=== PATIENT | female | born 1965 | race African-American/Black ===

== ENCOUNTER 2016-06-28 07:00 | Day surgery (SDC) | payer BC ==
[2016-06-25 11:23] LABS: APPEARANCE,URINE CLEAR; BILIRUBIN,URINE NEGATIVE (NEGATIVE); GLUCOSE, URINE NEGATIVE (NEGATIVE); KETONES,URINE NEGATIVE (NEGATIVE); LEUKOCYTE ESTERASE,URINE NEGATIVE (NEGATIVE); NITRITE,URINE NEGATIVE (NEGATIVE); PROTEIN,URINE NEGATIVE (NEGATIVE); URINE SPECIFIC GRAVITY 1.011; UROBILINOGEN,URINE NEGATIVE mg/dL (<2.0)
[2016-06-25 11:38] LABS: HEMOGLOBIN 12.5 g/dL (12.0-15.5); HGB HCT DIFFERENCE -2.5; MEAN CORPUSCULAR HEMOGLOBIN 25.2 pg (27.0-33.4); MEAN CORPUSCULAR HGB CONC 31.2 g/dL (32.0-36.0); MEAN CORPUSCULAR VOLUME 81 fl (80-97); RED BLOOD COUNT 4.94 10^6/uL (3.72-5.28); RED CELL DISTRIBUTION WIDTH 16.9 % (11.5-14.0); WHITE BLOOD COUNT 6.8 10^3/uL (4.0-10.5)
--- NOTE | 2016-06-25 16:27 | EKG REPORT ---
SEVERITY:- NORMAL ECG - SINUS RHYTHM : Confirmed by: Leo Higgins MD 25-Jun-2016 16:26:24
[~2016-06-28 07:00] MED LIST: LIDOCAINE 0.5% INJ-PF (5 MG/ML) 50 ML SDV INJ PRN; LIDOCAINE 1%/EPINEPHRINE INJ 20 ML VIAL ONE; RINGERS SOLUTION,LACTATED 1,000 ML IV PRN
[2016-06-28] MEDS ORDERED: MIDAZOLAM 2 MG/2 ML INJ ONE (09:25)
[2016-06-28] MEDS ORDERED: FENTANYL CITRATE INJ/PF 100 MCG/2 ML AMPUL ONE (09:25)
[2016-06-28] MEDS ORDERED: DEXMEDETOMIDINE INJ 80 MCG/20 ML VIAL IV ONE (09:26)
[2016-06-28] MEDS ORDERED: PROPOFOL INJ 200 MG/20 ML VIAL IV ONE ×2 (09:26→11:45)
[2016-06-28] MEDS ORDERED: ACETAMINOPHEN 100 ML IV ONE (09:29)
[2016-06-28] MEDS ORDERED: ONDANSETRON HCL INJ/PF 4 MG/2 ML SDV ONE (09:30)
[2016-06-28] MEDS ORDERED: MORPHINE SULFATE 10 MG/ML INJ IV PRN (11:40)
[2016-06-28] MEDS ORDERED: DIPHENHYDRAMINE HCL 50 MG/ML VIAL IV PRN (11:40)
[2016-06-28] MEDS ORDERED: PROMETHAZINE HCL INJ 25 MG/1 ML VIAL IV PRN ×2 (11:40)
[2016-06-28] MEDS ORDERED: MEPERIDINE HCL/PF INJ 25 MG/1 ML DISP.SYRIN IV PRN (11:40)
[2016-06-28] MEDS ORDERED: FENTANYL CITRATE INJ/PF 100 MCG/2 ML AMPUL IV PRN ×3 (11:40)
[2016-06-28] MEDS ORDERED: KETOROLAC TROMETHAMINE INJ/PF 30 MG/1 ML SDV ONE (12:14)
[2016-06-28] MEDS ORDERED: HYDROMORPHONE HCL INJ/PF 2 MG/ML AMPULE IV PRN (12:29)
[2016-06-28] MEDS ORDERED: RINGERS SOLUTION,LACTATED 1,000 ML IV PRN (12:29)
[2016-06-28] MEDS ORDERED: IBUPROFEN 800 MG TABLET PO PRN (12:29)
[2016-06-28] MEDS ORDERED: OXYCODONE-ACETAMINOPHEN 5-325 MG TABLET PO PRN ×2 (12:30)
[2016-06-28] MEDS ORDERED: HYDROMORPHONE HCL INJ/PF 2 MG/ML AMPULE ONE (12:48)
[2016-06-28] MEDS ORDERED: DIPHENHYDRAMINE HCL 25 MG CAPSULE ONE (13:10)
[2016-06-28 14:14] VITALS: BP 120/76
--- NOTE | 2016-07-05 08:58 | Operative Report ---
Operative Report DATE OF SURGERY: 06/28/16 OPERATION: EUA, Paracervical Block, Hysteroscopy, D&C, Novasure ANESTHESIA: GA PROCEDURE: Preoperative Diagnosis: [Menorrhagia] Postoperative Diagnosis: ROSALES Procedure: EUA, Paracervical Block,Hysteroscopy, Dilation and Curettage, Novasure Anesthesia: [Loc Melo CRNA, Lilibeth Vicente CRNA, Dennis Rosen MD] Anesthesia: GA EBL: less than 5ml IVF: [750ml] UOP: 100ml Specimens: [endometrial currettings] Complications: None Findings:[Anteverted uterus appproximately 8-10wks with proliferative appearing endometrium on hysteroscopy] Indications: [51yo with mnenorrhagia who has tried medical managememt with no improvement. She has a h/o BTL and desires no future children. She was counseled regarding the risks benefits and alternatives and desires to proceed with planned procedure.] Procedure: The patient was taken to the Operating Room where general anesthesia was obtained without difficulty. She was prepped and draped in the normal sterile fashion in the dorsal lithotomy position. Exam under anesthesia was performed and noted above. A speculum was placed in the vagina. The anterior cervix was grasped with a single-tooth tenaculum and the uterus sounded to 10cm after paracervical block was performed with 8 mL of 1% lidocaine with epinephrine. Cervical length was sounded to 4cm and cavity length therfore was 6cm. Sequential dilators were then used to dilate the cervix to accommodate the hysteroscope. The hysteroscope was then gently advanced into the uterine cavity in the usual fashion with visualization and findings as noted above.. At this time gentle curettage was performed until a gritty texture was noted. The Novasure device was then advanced in the usual fashion cavity width was determined to be 3.2cm and ablation performed per device instructions. Power was 106 and ablation performed for 43seconds. Th Novasure device was then removed and the hysteroscope removed. All instruments were removed from the patient's cervix and vagina. Silver nitrate was applied to the tenaculum site for hemostasis. Sponge lap needle and instrument counts are correct 2. No perioperative antibiotics were given as is not indicated for this procedure. The patient tolerated the procedure well and was taken to the recovery area awake and in stable condition.
== END 2016-06-28 14:24 | disposition home or self-care (01) ==
LOC: OROUT 07:00
PROVIDERS: ATTEND Student in an Organized Health Care Education/Training Program
PROC: 0U5B8ZZ Destruction of Endometrium, Via Natural or Artificial Opening Endoscopic (ICD-10-PCS; principal; 2016-06-28 09:15)
DX: N92.1 Excessive and frequent menstruation with irregular cycle (principal); J45.909 Unspecified asthma, uncomplicated; I10 Essential (primary) hypertension; Z87.891 Personal history of nicotine dependence; M06.9 Rheumatoid arthritis, unspecified; K21.9 Gastro-esophageal reflux disease without esophagitis; E66.9 Obesity, unspecified; Z68.42 Body mass index [BMI] 45.0-49.9, adult; Z88.8 Allergy status to other drugs, medicaments and biological substances; Z88.5 Allergy status to narcotic agent
CPT/HCPCS: 58563; 93005; 36415 ×2; 84132; 85027; 81025; 81001; 88305 ×2; 93010; J2250; J3010; J3490; J1885; J1170; J2405; J2704; J0131; 952

== ENCOUNTER 2016-10-13 14:47 | Emergency (ER) | payer BC ==
--- NOTE | 2016-10-13 16:44 | ER Document Report ---
ED Medical Screen (RME) - General Chief Complaint: Pelvic Pain Stated Complaint: ABDOMINAL PAIN Notes: 51 yo female c/o lower abdominal pain and bleeding x 3 days. pt has hx/o uterine ablation in June, started menses on (first period since procedure). constant sharp lower abdominal pain, intermittant bleeding with heavy flow, no clots. no fever. no urinary or vaginal symptoms. + nausea, no vomiting hx/o RA, fibromyalgia, chronic fatigue, HTN TRAVEL OUTSIDE OF THE [place] IN LAST 30 DAYS: No - Related Data Allergies/Adverse Reactions: CIARA Inhibitors Allergy (Severe, Verified 10/13/16 15:26) itching codeine Allergy (Severe, Verified 10/13/16 15:26) itching lorazepam [From Ativan] Allergy (Severe, Verified 10/13/16 15:26) crazy methotrexate Allergy (Severe, Verified 10/13/16 15:26) crazy Penicillins Allergy (Severe, Verified 10/13/16 15:26) rash tapentadol [From Nucynta] Allergy (Severe, Verified 10/13/16 15:26) itching Past Medical History - Past Medical History Cardiac Medical History: Reports: Hx Hypertension - ON MEDICATION Denies: Hx Coronary Artery Disease, Hx Heart Attack Pulmonary Medical History: Reports: Hx Asthma - INHALER OCC Denies: Hx Bronchitis, Hx COPD, Hx Pneumonia Neurological Medical History: Denies: Hx Cerebrovascular Accident, Hx Seizures Renal/ Medical History: Denies: Hx Peritoneal Dialysis Musculoskeltal Medical History: Reports Hx Arthritis - RA Past Surgical History: Reports: Hx Cholecystectomy, Hx Rectal Surgery - Immunizations Hx Diphtheria, Pertussis, Tetanus Vaccination: Yes Physical Exam - Vital signs Vitals: Temp Pulse Resp BP Pulse Ox 98.4 F 74 20 137/88 H 98 10/13/16 15:23 10/13/16 15:23 10/13/16 15:23 10/13/16 15:23 10/13/16 15:23 Course - Vital Signs Vital signs: Temp Pulse Resp BP Pulse Ox 98.4 F 74 20 137/88 H 98 10/13/16 15:23 10/13/16 15:23 10/13/16 15:23 10/13/16 15:23 10/13/16 15:23
[2016-10-13 17:58] LABS: ABSOLUTE BASOPHILS # (AUTO) 0.1 10^3/uL (0.0-0.2); ABSOLUTE EOSINOPHILS # (AUTO) 0.5 10^3/uL (0.0-0.6); ABSOLUTE LYMPHOCYTES (AUTO) 2.5 10^3/uL (0.5-4.7); ABSOLUTE MONOCYTES (AUTO) 0.8 10^3/uL (0.1-1.4); ABSOLUTE NEUT (AUTO) 3.9 10^3/uL (1.7-8.2); BASOPHILS % (AUTO) 0.8 % (0-2); HEMOGLOBIN 12.5 g/dL (12.0-15.5); HGB HCT DIFFERENCE -1.5; LYMPHOCYTES % (AUTO) 31.8 % (13-45); MEAN CORPUSCULAR HEMOGLOBIN 23.9 pg (27.0-33.4); MEAN CORPUSCULAR HGB CONC 32.1 g/dL (32.0-36.0); MEAN CORPUSCULAR VOLUME 74 fl (80-97); MONOCYTES % (AUTO) 10.6 % (3-13); RED BLOOD COUNT 5.24 10^6/uL (3.72-5.28); RED CELL DISTRIBUTION WIDTH 18.6 % (11.5-14.0); SEGMENTED NEUTROPHILS % (AUTO) 50.8 % (42-78); WHITE BLOOD COUNT 7.8 10^3/uL (4.0-10.5)
[2016-10-13 18:06] LABS: APPEARANCE,URINE CLEAR; BILIRUBIN,URINE NEGATIVE (NEGATIVE); GLUCOSE, URINE NEGATIVE (NEGATIVE); KETONES,URINE NEGATIVE (NEGATIVE); LEUKOCYTE ESTERASE,URINE NEGATIVE (NEGATIVE); NITRITE,URINE NEGATIVE (NEGATIVE); PROTEIN,URINE NEGATIVE (NEGATIVE); URINE SPECIFIC GRAVITY 1.011; UROBILINOGEN,URINE NEGATIVE mg/dL (<2.0)
[2016-10-13 18:22] LABS: ALANINE AMINOTRANSFERASE 40 U/L (9-52); ALKALINE PHOSPHATASE 73 U/L (38-126); ANION GAP 10 (5-19); ASPARTATE AMINO TRANSFERASE 33 U/L (14-36); BILIRUBIN,DIRECT 0.4 mg/dL (0.0-0.4); BILIRUBIN,TOTAL 0.7 mg/dL (0.2-1.3); BLOOD UREA NITROGEN 10 mg/dL (7-20); CALCIUM 10.1 mg/dL (8.4-10.2); CARBON DIOXIDE 29 mmol/L (22-30); CHLORIDE 101 mmol/L (98-107); CREATININE RESULT 0.83 mg/dL (0.52-1.25); GLUCOSE 91 mg/dL (75-110); POTASSIUM 3.8 mmol/L (3.6-5.0); SODIUM 140.1 mmol/L (137-145); TOTAL PROTEIN 7.3 g/dL (6.3-8.2)
--- NOTE | 2016-10-13 20:25 | ER Document Report ---
ED General - General Chief Complaint: Pelvic Pain Stated Complaint: ABDOMINAL PAIN Notes: Patient is a 51-year-old female with a past medical history of chronic pain, fibromyalgia, chronic fatigue syndrome and a recent endometrial ablation in June 2016 who presents with suprapubic pain and vaginal bleeding. States that the symptoms started 2 days ago and have gotten worse since that time. She has been trying [place] at home with minimal improvement of her pain. Does describe the pain as a constant, stabbing, severe pain to the suprapubic region. Nothing worsens the pain. Notes that she's been through approximately 12 pads per day. She has not have spoken to her STUDENT ACTIVITIES DIRECTOR regarding today's concerns. She denies any associated fever, headache, neck pain although states she's been nauseated and has vomited once. TRAVEL OUTSIDE OF THE [place] IN LAST 30 DAYS: No - Related Data Allergies/Adverse Reactions: CIARA Inhibitors Allergy (Severe, Verified 10/13/16 15:26) itching codeine Allergy (Severe, Verified 10/13/16 15:26) itching lorazepam [From Ativan] Allergy (Severe, Verified 10/13/16 15:26) crazy methotrexate Allergy (Severe, Verified 10/13/16 15:26) crazy Penicillins Allergy (Severe, Verified 10/13/16 15:26) rash tapentadol [From Nucynta] Allergy (Severe, Verified 10/13/16 15:26) itching Past Medical History - General Information source: Patient - Social History Smoking Status: Never Smoker Frequency of alcohol use: None Drug Abuse: None Lives with: Spouse/Significant other Family History: Reviewed & Not Pertinent Patient has suicidal ideation: No Patient has homicidal ideation: No - Past Medical History Cardiac Medical History: Reports: Hx Hypertension - ON MEDICATION Denies: Hx Coronary Artery Disease, Hx Heart Attack Pulmonary Medical History: Reports: Hx Asthma - INHALER OCC Denies: Hx Bronchitis, Hx COPD, Hx Pneumonia Neurological Medical History: Denies: Hx Cerebrovascular Accident, Hx Seizures Renal/ Medical History: Denies: Hx Peritoneal Dialysis Musculoskeltal Medical History: Reports Hx Arthritis - RA Past Surgical History: Reports: Hx Cholecystectomy, Hx Rectal Surgery - Immunizations Hx Diphtheria, Pertussis, Tetanus Vaccination: Yes Review of Systems - Review of Systems Notes: Constitutional: Negative for fever. HENT: Negative for sore throat. Eyes: Negative for visual changes. Cardiovascular: Negative for chest pain. Respiratory: Negative for shortness of breath. Gastrointestinal: Positive for suprapubic abdominal pain and nausea Genitourinary: Positive for vaginal bleeding Musculoskeletal: Negative for back pain. Skin: Negative for rash. Neurological: Negative for headaches, weakness or numbness. 10 point ROS negative except as marked above and in HPI. Physical Exam - Vital signs Vitals: Temp Pulse Resp BP Pulse Ox 98.4 F 74 20 137/88 H 98 10/13/16 15:23 10/13/16 15:23 10/13/16 15:23 10/13/16 15:23 10/13/16 15:23 Interpretation: Normal Notes: PHYSICAL EXAMINATION: GENERAL: Well-appearing, well-nourished and in no acute distress. HEAD: Atraumatic, normocephalic. EYES: Pupils equal round and reactive to light, extraocular movements intact, sclera anicteric, conjunctiva are normal. ENT: nares patent, oropharynx clear without exudates. Moist mucous membranes. NECK: Normal range of motion, supple without lymphadenopathy LUNGS: Breath sounds clear to auscultation bilaterally and equal. No wheezes rales or rhonchi. HEART: Regular rate and rhythm without murmurs ABDOMEN: Soft, mild suprapubic abdominal tenderness, normoactive bowel sounds. No guarding, no rebound. No masses appreciated. : Scant brown discharge EXTREMITIES: Normal range of motion, no pitting or edema. No cyanosis. NEUROLOGICAL: No focal neurological deficits. Moves all extremities spontaneously and on command. PSYCH: Normal mood, normal affect. SKIN: Warm, Dry, normal turgor, no rashes or lesions noted. Course - Re-evaluation Re-evalutation: 10/13/16 20:33 Presentation is most consistent with dysmenorrhea and dysfunctional uterine bleeding in the setting of uterine fibroids as demonstrated on ultrasound. Pelvic exam with minimal vaginal bleeding at this time. Suprapubic tenderness is present without any focal adnexal tenderness. She is not anemic. Her labs are otherwise within normal limits and her vitals are on remarkable. I discussed this case with our STUDENT ACTIVITIES DIRECTOR electrician constructor supervisor Dr. Moody who is in agreement that this patient may need a hysterectomy for definitive management of her presentation. I have encouraged the patient follow-up closely as an outpatient. At this time will discharge with return precautions and follow-up recommendations. Verbal discharge instructions given a the bedside and opportunity for questions given. Medication warnings reviewed. Patient is in agreement with this plan and has verbalized understanding of return precautions and the need for primary care follow-up in the next 24-72 hours. - Vital Signs Vital signs: Temp Pulse Resp BP Pulse Ox 98.4 F 78 18 118/79 98 10/13/16 15:23 10/13/16 20:55 10/13/16 20:55 10/13/16 20:55 10/13/16 20:55 - Laboratory Result Diagrams: 10/13/16 17:20 10/13/16 17:20 Laboratory results interpreted by me: 10/13/16 10/13/16 17:20 17:20 MCV 74 L MCH 23.9 L RDW 18.6 H Urine Blood LARGE H Discharge - Discharge Clinical Impression: Dysmenorrhea Condition: Good Disposition: HOME, SELF-CARE Additional Instructions: You need to contact the women's clinic in the morning and inform them that I spoke with Dr. Heidy elizondo she is asked that she be seen at the clinics earliest ability. For your pain take Tylenol 1000 mg every 6 hours. You can also apply heating pad to the area. If this is not completely controlling your pain you can take 1 tablet of the morphine that you were sent home with every 4 hours. Please make every attempt to minimize the use of this medication as much as possible as you are being sent with a very limited prescription. You may end up requiring a hysterectomy to definitively manage your pain and bleeding. Please return if you develop bleeding through more than 2 pads for more than 2 hours, pass out, have worsening of your pain, develop a fever greater than 101F, or have any other symptoms that are worrisome to you. Prescriptions: Morphine Sulfate [Morphine Ir 15 mg Tablet] 15 mg PO Q4HP PRN #12 tablet PRN Reason: Forms: Return to Work
[2016-10-13] MEDS ORDERED: MORPHINE SULFATE IR 15 MG TABLET PO ONE (20:28)
[2016-10-13] MEDS ORDERED: ACETAMINOPHEN 325 MG TABLET PO ONE (20:29)
[2016-10-13 20:56] VITALS: BP 118/79
== END 2016-10-13 20:55 | disposition home or self-care (01) ==
LOC: ER 14:47
DX: N94.6 Dysmenorrhea, unspecified (principal); D25.9 Leiomyoma of uterus, unspecified; R11.2 Nausea with vomiting, unspecified; I10 Essential (primary) hypertension; J45.909 Unspecified asthma, uncomplicated; Z98.890 Other specified postprocedural states; Z88.8 Allergy status to other drugs, medicaments and biological substances; Z88.5 Allergy status to narcotic agent; Z88.0 Allergy status to penicillin; Z88.6 Allergy status to analgesic agent
CPT/HCPCS: 36415; 76830; 80053; 81001; 85025; 99284

== ENCOUNTER 2017-09-17 06:33 | Day surgery (SDC) | payer BC ==
[2017-09-12 12:43] LABS: ABSOLUTE BASOPHILS # (AUTO) 0.1 10^3/uL (0.0-0.2); ABSOLUTE EOSINOPHILS # (AUTO) 0.5 10^3/uL (0.0-0.6); ABSOLUTE LYMPHOCYTES (AUTO) 2.4 10^3/uL (0.5-4.7); ABSOLUTE MONOCYTES (AUTO) 0.8 10^3/uL (0.1-1.4); ABSOLUTE NEUT (AUTO) 4.1 10^3/uL (1.7-8.2); BASOPHILS % (AUTO) 1.5 % (0-2); EOSINOPHILS % (AUTO) 6.4 % (0-6); HEMATOCRIT 47.1 % (36.0-47.0); HEMOGLOBIN 15.9 g/dL (12.0-15.5); LYMPHOCYTES % (AUTO) 30.4 % (13-45); MEAN CORPUSCULAR HEMOGLOBIN 29.6 pg (27.0-33.4); MEAN CORPUSCULAR HGB CONC 33.8 g/dL (32.0-36.0); MEAN CORPUSCULAR VOLUME 88 fl (80-97); MONOCYTES % (AUTO) 9.9 % (3-13); PLATELET COUNT 256 10^3/uL (150-450); RED BLOOD COUNT 5.37 10^6/uL (3.72-5.28); RED CELL DISTRIBUTION WIDTH 13.9 % (11.5-14.0); SEGMENTED NEUTROPHILS % (AUTO) 51.8 % (42-78); TOTAL CELLS COUNTED % (AUTO) 100 %; WHITE BLOOD COUNT 7.9 10^3/uL (4.0-10.5)
[2017-09-12 13:08] LABS: AMORPHOUS SEDIMENT,URINE 2+ /HPF; APPEARANCE,URINE TURBID; BILIRUBIN,URINE NEGATIVE (NEGATIVE); COLOR,URINE YELLOW; GLUCOSE, URINE NEGATIVE (NEGATIVE); KETONES,URINE NEGATIVE (NEGATIVE); LEUKOCYTE ESTERASE,URINE NEGATIVE (NEGATIVE); NITRITE,URINE NEGATIVE (NEGATIVE); PROTEIN,URINE NEGATIVE (NEGATIVE); URINE SPECIFIC GRAVITY 1.026
[2017-09-12 13:12] LABS: ANION GAP 10 (5-19); BLOOD UREA NITROGEN 15 mg/dL (7-20); CALCIUM 9.9 mg/dL (8.4-10.2); CARBON DIOXIDE 33 mmol/L (22-30); CHLORIDE 100 mmol/L (98-107); GLUCOSE 86 mg/dL (75-110)
--- NOTE | 2017-09-12 13:37 | RADIOLOGY REPORT (SQ) ---
EXAM DESCRIPTION: CHEST PA/LATERAL COMPLETED DATE/TIME: 09/12/2017 12:20 pm REASON FOR STUDY: PRE OP COMPARISON: None. EXAM PARAMETERS: NUMBER OF VIEWS: two views TECHNIQUE: Digital Frontal and Lateral radiographic views of the chest acquired. RADIATION DOSE: NA LIMITATIONS: none FINDINGS: LUNGS AND PLEURA: No opacities, masses or pneumothorax. No pleural effusion. MEDIASTINUM AND HILAR STRUCTURES: No masses or contour abnormalities. HEART AND VASCULAR STRUCTURES: Heart normal size. No evidence for failure. BONES: No acute findings. HARDWARE: None in the chest. OTHER: No other significant finding. IMPRESSION: NO SIGNIFICANT RADIOGRAPHIC FINDING IN THE CHEST. TECHNICAL DOCUMENTATION: JOB ID: [id number] [email or web address] All Rights Reserved Reading location - IP/workstation name: [email or web address]
--- NOTE | 2017-09-12 21:01 | EKG REPORT ---
SEVERITY:- ABNORMAL ECG - SINUS RHYTHM FIRST DEGREE AV BLOCK : Confirmed by: Melissa Goodrich 12-Sep-2017 21:00:49
[~2017-09-17 06:33] MED LIST changes: +CLINDAMYCIN 600 MG/D5W RTU 600 MG/50 ML RTUPB IV PRN; +LACTATED RINGERS 1000 ML IV PRN; -LIDOCAINE 0.5% INJ-PF (5 MG/ML) 50 ML SDV INJ PRN; +LIDOCAINE 0.5% INJ-PF (5 MG/ML) 50 ML SDV SUBCUT PRN; -LIDOCAINE 1%/EPINEPHRINE INJ 20 ML VIAL ONE; -RINGERS SOLUTION,LACTATED 1,000 ML IV PRN
[2017-09-17] MEDS ORDERED: LIDOCAINE 1%/EPINEPHRINE INJ 20 ML VIAL ONE (07:11)
[2017-09-17] MEDS ORDERED: BUPIVACAINE HCL 0.5 % INJ/PF 30 ML SDV ONE (07:11)
[2017-09-17] MEDS ORDERED: MIDAZOLAM 2 MG/2 ML INJ ONE (08:42)
[2017-09-17] MEDS ORDERED: FENTANYL CITRATE INJ/PF 100 MCG/2 ML AMPUL ONE ×2 (08:42→09:40)
[2017-09-17] MEDS ORDERED: PROPOFOL INJ 200 MG/20 ML VIAL IV ONE (08:43)
[2017-09-17] MEDS ORDERED: KETAMINE HCL INJ 500 MG/10 ML VIAL ONE (08:43)
[2017-09-17] MEDS ORDERED: FENTANYL CITRATE INJ/PF 100 MCG/2 ML AMPUL IV PRN ×2 (08:58)
[2017-09-17] MEDS ORDERED: DIPHENHYDRAMINE HCL 50 MG/ML VIAL IV PRN (08:58)
--- NOTE | 2017-09-17 09:19 | Operative Report ---
Operative Report DATE OF SURGERY: 09/17/17 PREOPERATIVE DIAGNOSIS: Left lateral meniscal tear POSTOPERATIVE DIAGNOSIS: Left lateral meniscal tear. 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 Intact ACL. Intact medial meniscus OPERATION: Arthroscopic partial left lateral meniscectomy SURGEON: LETI MADRIGAL ANESTHESIA: LMAC ESTIMATED BLOOD LOSS: Minimal PROCEDURE: With the patient supine Afrin table the left lower extremities prepped and draped in sterile fashion. A combination of Xylocaine, Marcaine, and epinephrine are injected through medial lateral patella portals. Medial lateral infrapatellar portals are created and used for the introduction of arthroscope and debridements mutation. The joint is examined in systematic fashion findings as above. Using combination of basket Hector, mechanical shaver, electric frequency ablation probable partial lateral meniscectomy was performed from proximal to 12:00 to 6:00 in the face of the dial. The joint is again examined in a systematic fashion with no new findings. The instrumentation was removed. The portals were closed with interrupted nylon. Sterile compressive dressings applied. The patient's return to PACU in satisfactory condition
[2017-09-17] MEDS: FENTANYL CITRATE INJ/PF 100 MCG/2 ML AMPUL IV PRN ×2 (09:35→09:40)
[2017-09-17] MEDS ORDERED: OXYCODONE HCL IR 5 MG TABLET PO PRN (09:36)
[2017-09-17] MEDS ORDERED: ONDANSETRON 4 MG TAB.RAPDIS SL PRN (09:37)
[2017-09-17 11:46] VITALS: BP 125/86
[2017-09-17] MEDS ORDERED: GLYCOPYRROLATE INJ 0.4 MG/2 ML VIAL ONE (12:06)
[2017-09-17] MEDS ORDERED: LIDOCAINE 2% INJ-PF (20 MG/ML) 2 ML AMPUL ONE (12:06)
== END 2017-09-17 11:30 | disposition home or self-care (01) ==
LOC: OROUT 06:33
PROVIDERS: ATTEND Orthopaedic Surgery
PROC: 0SBD4ZZ Excision of Left Knee Joint, Percutaneous Endoscopic Approach (ICD-10-PCS; principal; 2017-09-17 08:30)
DX: M23.204 Derangement of unspecified medial meniscus due to old tear or injury, left knee (principal); M22.42 Chondromalacia patellae, left knee; D50.9 Iron deficiency anemia, unspecified; M06.9 Rheumatoid arthritis, unspecified; E66.9 Obesity, unspecified; E87.6 Hypokalemia; I11.9 Hypertensive heart disease without heart failure; M79.7 Fibromyalgia; K58.9 Irritable bowel syndrome, unspecified; Z79.51 Long term (current) use of inhaled steroids; Z68.41 Body mass index [BMI] 40.0-44.9, adult; Z88.0 Allergy status to penicillin; Z79.899 Other long term (current) drug therapy; Z79.891 Long term (current) use of opiate analgesic
CPT/HCPCS: 29881; 93005; 36415 ×2; 84132; 85025; 81025; 80048; 81001; 71046; 93010; J2250; J3490 ×4; J3010; J2704; 1400

== ENCOUNTER → 2019-09-27 | Outpatient (CLI) | payer BC ==
--- NOTE | 2019-09-27 12:56 | ER RDC ASSESSMENT REPORT ---
Intake - In the Last 14 days Have you been in close contact with someone CONFIRMED: Yes Worked in Healthcare?: No --Where?: [facility] - Symptoms Subjective Fever([place] feverish): Yes Chills: No Muscule Aches: Yes Runny Nose: No Sore Throat: Yes Cough (New or worsening chronic cough): Yes Shortness of breath: Yes Nausea or Vomiting: Yes Headache: Yes Abdominal Pain: No Diarrhea(3 or more loose stools in last 24 hours): Yes - Do you have any of the following Chronic lung disease: Asthma or emphysema or COPD: Yes Chronic Lung Disease Comment: asthma Cystic Fibrosis: No Diabetes: No High Blood Pressure: Yes Cardiovascular Disease: No Chronic Kidney Disease: No Chronic Liver Disease: No Chronic blood disorder like Sickle Cell Disease: No Weak immune system due to disease or medication: Yes Immune System Comment: RA Neurologic condition that limits movement: No Developmental delay - Moderate to Severe: No Recent (within past 2 weeks) or current : No Morbid Obesity (>100 pounds over ideal weight): No - Objective Temperature: 98.1 F Pulse Rate: 83 Respiratory Rate: 14 Blood Pressure: 133/74 O2 Sat by Pulse Oximetry: 98 Objective: Given above, testing performed: flu a/b, rapid strtep all negative; covid 19 sent If Testing Performed: Test Specimen Type Sent to Disposition: Home; Selfcare General - General Chief Complaint: Flu Symptoms Stated Complaint: dry cough, SOB on exertion Mode of Arrival: Ambulatory Information source: Patient - HPI Patient complains to provider of: Dry cough, fevers, myalgia, sore throat, SOB on exertion, fatigue Onset: Other - 09/19/2019 onset Onset/Duration: Gradual, Persistent Quality of pain: No pain Associated symptoms: Body/muscle aches, Nonproductive cough, Diarrhea, Headache, Nausea, Shortness of breath, Sore throat Exacerbated by: Denies Relieved by: Denies Similar symptoms previously: No Recently seen / treated by doctor: No - Related Data Allergies/Adverse Reactions: CIARA Inhibitors Allergy (Severe, Verified 09/12/17 10:51) itching codeine Allergy (Severe, Verified 09/12/17 10:51) itching lorazepam [From Ativan] Allergy (Severe, Verified 09/12/17 10:51) crazy methotrexate Allergy (Severe, Verified 09/12/17 10:51) crazy Penicillins Allergy (Severe, Verified 09/12/17 10:51) rash tapentadol [From Nucynta] Allergy (Severe, Verified 09/12/17 10:51) itching acetaminophen [From Darvocet-N] Allergy (Intermediate, Verified 09/12/17 10:51) Generalized Itching propoxyphene [From Darvocet-N] Allergy (Intermediate, Verified 09/12/17 10:51) Generalized Itching Home Medications: renvoq, lyrica, losartan 100/25, lexapro 10 mg, tramadol 50 mg, prevacid, proventil PRN Past Medical History - General Information source: Patient - Social History Smoking Status: Former Smoker Cigarette use (# per day): No Chew tobacco use (# tins/day): No Family History: Reviewed & Not Pertinent - Medical History Medical History: Other Notes: rheumatoid arthritis - Past Medical History Cardiac Medical History: Reports: Hx Hypertension - ON MEDICATION Denies: Hx Coronary Artery Disease, Hx Heart Attack Pulmonary Medical History: Reports: Hx Asthma - INHALER OCC Denies: Hx Bronchitis, Hx COPD, Hx Pneumonia EENT Medical History: Reports: None Neurological Medical History: Reports: None. Denies: Hx Cerebrovascular Accident, Hx Seizures Endocrine Medical History: Reports: None Renal/ Medical History: Reports: None. Denies: Hx Peritoneal Dialysis Malignancy Medical History: Reports: None GI Medical History: Reports: None Musculoskeletal Medical History: Reports Hx Arthritis - RA, Reports Hx Fibromyalgia Skin Medical History: Reports None Psychiatric Medical History: Reports: None Traumatic Medical History: Reports: None Infectious Medical History: Reports: None Past Surgical History: Reports: Hx Cholecystectomy, Hx Rectal Surgery Physical Exam - Vital signs Interpretation: Normal - General General appearance: Appears well In distress: None Notes: PHYSICAL EXAMINATION: GENERAL: Well-appearing and in no acute distress. HEAD: Atraumatic, normocephalic. EYES: sclera anicteric, conjunctiva are normal. ENT: nares patent. Moist mucous membranes. NECK: Normal range of motion, supple without lymphadenopathy LUNGS: CTAB and equal. No wheezes rales or rhonchi. HEART: Regular rate and rhythm without murmurs ABDOMEN: Soft, nontender, normal bowel sounds, no guarding. EXTREMITIES: Normal range of motion, no pitting edema. No cyanosis. NEUROLOGICAL: Cranial nerves grossly intact. Normal speech. Normal gait. PSYCH: Normal mood, normal affect. SKIN: Warm, Dry, normal turgor, no rashes or lesions noted Patient Education/Counseling Counseling/Education: Patient presents with upper respiratory symptoms worrisome for possible Covid 19. Patient does not have emergency worrying symptoms such as difficulty breathing, shortness of breath, chest pain, pressure, confusion or cyanosis. Patient appears suitable for discharge as vital signs are stable and patient is nontoxic in appearance. Good return precautions have been discussed with patient, patient verbalized understanding and is agreeable with discharge plan of care at this time. Guidance for worsening S/SX: As a person under investigation for Covid 19, the [place] department of Health and Human Services, division of public health advises you to adhere to the following guidance until your test results are reported to you. If your test result is positive, you will receive additional information from your pr ovider and your local health department at that time. Remain at home until you are cleared by the health provider or public health authorities. Keep a log of visitors to your home, notify any visitors to your home of your isolation status. If you plan to move to a new address or leave the county, notify the local health department in your County. Call your doctor or seek care if you have an urgent medical need. Before seeking medical care, call ahead to get instructions from the provider before arriving at the medical office clinic or hospital. Notify them that you are being tested for the virus that causes Covid 19 so that arrangements can be made, as necessary, to prevent transmission to others in the healthcare setting. Next, notify the local health department in your county. If a medical emergency arises and you need to call 911, inform the first responders that you are being tested for the virus that causes Covid 19. Next, notify the local health department in your county. RDC Discharge - Discharge Clinical Impression: Upper respiratory infection, covid 19 screen Condition: Stable Disposition: Home; Selfcare
[2019-09-27 12:58] LABS: A TYPE INFLUENZA AG NEGATIVE (NEGATIVE); B INFLUENZA AG NEGATIVE (NEGATIVE)
[2019-09-27 13:08] VITALS: BP 133/74
== END ==
LOC: RDC 11:36
PROVIDERS: ATTEND Registered Nurse
DX: Z20.828 Contact with and (suspected) exposure to other viral communicable diseases (principal)
CPT/HCPCS: 87070; 87635; 87804; 87880

== ENCOUNTER 2020-05-20 13:24 | Emergency (ER) | payer BC ==
--- NOTE | 2020-05-20 14:21 | ER Document Report ---
ED Medical Screen (RME) - General Chief Complaint: Abdominal Pain Stated Complaint: ABDOMINAL PAIN,NAUSEA Time Seen by Provider: 05/20/20 14:14 Primary Care Provider: RONNI SERVIN MD [Primary Care Provider] - Follow up as needed TRAVEL OUTSIDE OF THE [place] IN LAST 30 DAYS: No - HPI Notes: Patient has hx of peptic ulcer disease, diverticulitis, colon perforation with resection who presents with abdominal pain and nausea that began last night. Patient describes her pain as intermittent and mid epigastric. She states her pain is exacerbated by eating. She denies vomiting, diarrhea, constipation, chest pain and shortness of breath. - Related Data Allergies/Adverse Reactions: CIARA Inhibitors Allergy (Severe, Verified 09/12/17 10:51) itching codeine Allergy (Severe, Verified 09/12/17 10:51) itching lorazepam [From Ativan] Allergy (Severe, Verified 09/12/17 10:51) crazy methotrexate Allergy (Severe, Verified 09/12/17 10:51) crazy Penicillins Allergy (Severe, Verified 09/12/17 10:51) rash tapentadol [From Nucynta] Allergy (Severe, Verified 09/12/17 10:51) itching acetaminophen [From Darvocet-N] Allergy (Intermediate, Verified 09/12/17 10:51) Generalized Itching propoxyphene [From Darvocet-N] Allergy (Intermediate, Verified 09/12/17 10:51) Generalized Itching Past Medical History - Past Medical History Cardiac Medical History: Reports: Hx Hypertension - ON MEDICATION Denies: Hx Coronary Artery Disease, Hx Heart Attack Pulmonary Medical History: Reports: Hx Asthma - INHALER OCC Denies: Hx Bronchitis, Hx COPD, Hx Pneumonia Neurological Medical History: Denies: Hx Cerebrovascular Accident, Hx Seizures Renal/ Medical History: Denies: Hx Peritoneal Dialysis Musculoskeltal Medical History: Reports Hx Arthritis - RA, Reports Hx Fibromyal anya Past Surgical History: Reports: Hx Cholecystectomy, Hx Rectal Surgery - Immunizations Hx Diphtheria, Pertussis, Tetanus Vaccination: Yes Physical Exam - Vital signs Vitals: Temp Pulse Resp BP Pulse Ox 98.3 F 79 18 137/85 H 95 05/20/20 13:48 05/20/20 13:48 05/20/20 13:48 05/20/20 13:48 05/20/20 13:48 - Abdominal Tenderness: Tender - mid epigastric Notes: Exam limited due to seated position in triage Course - Re-evaluation Re-evalutation: I have greeted and performed a rapid initial assessment of this patient. A comprehensive ED assessment and evaluation of the patient, analysis of test results and completion of medical decision making process will be conducted by an additional ED providers. - Vital Signs Vital signs: Temp Pulse Resp BP Pulse Ox 98.3 F 79 18 137/85 H 95 05/20/20 13:48 05/20/20 13:48 05/20/20 13:48 05/20/20 13:48 05/20/20 13:48 Doctor's Discharge - Discharge Referrals: RONNI SERVIN MD [Primary Care Provider] - Follow up as needed
[2020-05-20] MEDS ORDERED: ONDANSETRON 4 MG TAB.RAPDIS PO ONE (14:25)
[2020-05-20 16:09] LABS: ABSOLUTE EOSINOPHILS # (AUTO) 0.1 10^3/uL (0.0-0.6); ABSOLUTE LYMPHOCYTES (AUTO) 2.6 10^3/uL (0.5-4.7); ABSOLUTE MONOCYTES (AUTO) 0.9 10^3/uL (0.1-1.4); ABSOLUTE NEUT (AUTO) 4.6 10^3/uL (1.7-8.2); BASOPHILS % (AUTO) 0.5 % (0-2); EOSINOPHILS % (AUTO) 1.4 % (0-6); HEMATOCRIT 45.7 % (36.0-47.0); HEMOGLOBIN 15.3 g/dL (12.0-15.5); LYMPHOCYTES % (AUTO) 31.3 % (13-45); MEAN CORPUSCULAR HEMOGLOBIN 29.7 pg (27.0-33.4); MEAN CORPUSCULAR HGB CONC 33.5 g/dL (32.0-36.0); MEAN CORPUSCULAR VOLUME 89 fl (80-97); MONOCYTES % (AUTO) 10.9 % (3-13); PLATELET COUNT 239 10^3/uL (150-450); RED BLOOD COUNT 5.15 10^6/uL (3.72-5.28); RED CELL DISTRIBUTION WIDTH 14.9 % (11.5-14.0); SEGMENTED NEUTROPHILS % (AUTO) 55.9 % (42-78); TOTAL CELLS COUNTED % (AUTO) 100 %; WHITE BLOOD COUNT 8.2 10^3/uL (4.0-10.5)
[2020-05-20 16:10] LABS: APPEARANCE,URINE SLIGHTLY-CLOUDY; BILIRUBIN,URINE NEGATIVE (NEGATIVE); COLOR,URINE YELLOW; GLUCOSE, URINE NEGATIVE (NEGATIVE); KETONES,URINE NEGATIVE (NEGATIVE); LEUKOCYTE ESTERASE,URINE NEGATIVE (NEGATIVE); NITRITE,URINE NEGATIVE (NEGATIVE); PROTEIN,URINE NEGATIVE (NEGATIVE); URINE SPECIFIC GRAVITY 1.019; UROBILINOGEN,URINE NEGATIVE mg/dL (<2.0)
[2020-05-20 16:26] LABS: ALKALINE PHOSPHATASE 56 U/L (38-126); ANION GAP 6 (5-19); ASPARTATE AMINO TRANSFERASE 41 U/L (14-36); BILIRUBIN,DIRECT 0.2 mg/dL (0.0-0.4); BILIRUBIN,TOTAL 0.6 mg/dL (0.2-1.3); BLOOD UREA NITROGEN 11 mg/dL (7-20); CALCIUM 10.2 mg/dL (8.4-10.2); CARBON DIOXIDE 33 mmol/L (22-30); CHLORIDE 102 mmol/L (98-107); GLUCOSE 89 mg/dL (75-110); POTASSIUM 4.1 mmol/L (3.6-5.0); TOTAL PROTEIN 6.9 g/dL (6.3-8.2)
[2020-05-20] MEDS ORDERED: HYDROCODONE/ACETAMINOPHEN 10-325 MG TABLET PO ONE (19:26)
[2020-05-20] MEDS ORDERED: NORMAL SALINE 1000 ML 1,000 ML IV ONE (20:11)
[2020-05-20] MEDS ORDERED: ONDANSETRON HCL INJ/PF 4 MG/2 ML SDV IV ONE (20:16)
--- NOTE | 2020-05-20 20:17 | ER Document Report ---
ED General - General Chief Complaint: Abdominal Pain Stated Complaint: ABDOMINAL PAIN,NAUSEA Time Seen by Provider: 05/20/20 14:14 Primary Care Provider: RONNI SERVIN MD [Primary Care Provider] - Follow up in 3-5 days TRAVEL OUTSIDE OF THE [place] IN LAST 30 DAYS: No - HPI Notes: Patient is a 55-year-old female with a past medical history of ulcer and perforation status post colon resection in 2005 who presents with epigastric pain. Pain is sharp and stabbing. It developed after dinner last night. Pain was still there this morning. She denies vomiting. She has been nauseous. No diarrhea or constipation. No fevers or chills. No chest pain. Patient is concerned that she could have a tear. She states she is on medication for rheumatoid arthritis that increases her likelihood of tears. She denies any urinary issues. Patient called her doctor and he told her to go to the ED. Able to keep down food and liquid. She had a normal colonoscopy/endoscopy several years ago. - Related Data Allergies/Adverse Reactions: CIARA Inhibitors Allergy (Severe, Verified 09/12/17 10:51) itching codeine Allergy (Severe, Verified 09/12/17 10:51) itching lorazepam [From Ativan] Allergy (Severe, Verified 09/12/17 10:51) crazy methotrexate Allergy (Severe, Verified 09/12/17 10:51) crazy Penicillins Allergy (Severe, Verified 09/12/17 10:51) rash tapentadol [From Nucynta] Allergy (Severe, Verified 09/12/17 10:51) itching acetaminophen [From Darvocet-N] Allergy (Intermediate, Verified 09/12/17 10:51) Generalized Itching propoxyphene [From Darvocet-N] Allergy (Intermediate, Verified 09/12/17 10:51) Generalized Itching Home Medications: LOSARTAN, RINVOQ, TRAMADOL, LYRICA, ESCITALOPRAM Past Medical History - General Information source: Patient - Social History Smoking Status: Former Smoker Frequency of alcohol use: Rare Drug Abuse: None Family History: Reviewed & Not Pertinent Patient has homicidal ideation: No - Past Medical History Cardiac Medical History: Reports: Hx Hypertension - ON MEDICATION Denies: Hx Coronary Artery Disease, Hx Heart Attack Pulmonary Medical History: Reports: Hx Asthma - INHALER OCC Denies: Hx Bronchitis, Hx COPD, Hx Pneumonia Neurological Medical History: Denies: Hx Cerebrovascular Accident, Hx Seizures Renal/ Medical History: Denies: Hx Peritoneal Dialysis Musculoskeletal Medical History: Reports Hx Arthritis - RA, Reports Hx Fibromyalgia Past Surgical History: Reports: Hx Section, Hx Cholecystectomy, Hx Gynecologic Surgery - ABLASION, Hx Rectal Surgery, Hx Tonsillectomy - Immunizations Hx Diphtheria, Pertussis, Tetanus Vaccination: Yes Review of Systems - Review of Systems Notes: CONSTITUTIONAL: No fever, fatigue or weight loss. SKIN: No rash. CARDIOVASCULAR: No chest pain or edema. RESPIRATORY: No cough, shortness of breath, congestion, or wheezing. GASTROINTESTINAL: Positive for abdominal pain. Positive for nausea. No vomiting or diarrhea. GENITOURINARY: No dysuria. MUSCULOSKELETAL: No joint pain or swelling. LYMPHATIC: No swollen glands. NEUROLOGIC: No seizures. No headache, focal weakness or sensory changes. HEMATOLOGIC: No unusual bruising or bleeding. PSYCHIATRIC: No depression or anxiety. Physical Exam - Vital signs Vitals: Temp Pulse Resp BP Pulse Ox 98.3 F 79 18 137/85 H 95 05/20/20 13:48 05/20/20 13:48 05/20/20 13:48 05/20/20 13:48 05/20/20 13:48 - General General appearance: Appears well In distress: None Notes: VITAL SIGNS: Within normal limits. GENERAL: No acute distress, non-toxic appearance. HEAD: Normal with no signs of head trauma. EYES: EOMI, conjunctiva normal, no discharge. EARS: Hearing grossly intact. NECK: Normal range of motion, no tenderness, supple, no lymphadenopathy, No adenopathy, no JVD. CHEST: Clear breath sounds bilaterally. No wheezes, rales, or rhonchi. CARDIAC: Regular rate and rhythm. S1 and S2, without murmurs, gallops, or rubs. VASCULAR: No Edema. ABDOMEN: Normal and soft. No guarding or rigidity. Discomfort to epigastric palpation. No masses palpated. GASTROINTESTINAL: Bowel sounds normal MUSCULOSKELETAL: Good range of motion of all major joints. Extremities without clubbing, cyanosis or edema. NEUROLOGICAL: Alert and oriented x 3. No focal sensory or strength deficits. Speech normal. Follows commands appropriately. PSYCHIATRIC: Normal Affect, judgement and mood. SKIN: Normal appearance with no rashes or lesions. Course - Re-evaluation Re-evalutation: 05/20/20 20:17 Patient states she is very upset that she has been in the ER for a long time. I did convince her to stay for a CT. She is declining any pain medicine. Her lab work was reviewed and is unremarkable. She is in no acute distress. Patient's CT is unremarkable. I again offered her a GI cocktail but she decline d. I counseled her on avoiding spicy foods, tomatoes, tomato sauce, coffee, other irritating foods. She was told to follow-up with her PCP and her production coordinator. Patient was given strict return precautions. She is very agreeable to the plan. 05/21/20 01:18 - Vital Signs Vital signs: Temp Pulse Resp BP Pulse Ox 97.8 F 66 18 117/70 100 05/21/20 00:10 05/21/20 00:10 05/21/20 00:10 05/21/20 00:10 05/21/20 00:10 - Laboratory Results Result Diagrams: 05/20/20 15:36 05/20/20 15:36 Laboratory Results Interpreted: 05/20/20 05/20/20 15:36 15:36 RDW 14.9 H Carbon Dioxide 33 H AST 41 H ALT 43 H Critical Laboratory Results Reviewed: No Critical Results - Radiology Results Critical Radiology Results Reviewed: No Critical Results Discharge - Discharge Clinical Impression: Epigastric pain Condition: Stable Disposition: HOME, SELF-CARE Instructions: Abdominal Pain ([facility]) Additional Instructions: Your work-up today is reassuring. Eat a bland diet until you feel better. Avoid foods such as coffee, dairy, raw vegetables, pasta sauce, tomatoes, spicy foods until you feel better. Return to the ER immediately for any worsening symptoms. Referrals: RONNI SERVIN MD [Primary Care Provider] - Follow up in 3-5 days
--- NOTE | 2020-05-20 23:51 | RADIOLOGY REPORT (SQ) ---
CLINICAL HISTORY: abdominal pain epigastric, hx of perf/colon resec COMPARISON: None. TECHNIQUE: CT ABDOMEN PELVIS WITH IV CONTRAST on 05/20/2020 8:12 PM [employer] This exam was performed according to our departmental dose-optimization program, which includes automated exposure control, adjustment of the mA and/or kV according to patient size and/or use of iterative reconstruction technique. FINDINGS: Lower lungs are clear. Abdomen: The liver is normal in appearance. There is no biliary dilatation. Cholecystectomy was performed. The pancreas and spleen are normal in appearance. The adrenal glands and kidneys are unremarkable. Abdominal aorta is normal in course and caliber without aneurysm. There is no free air. There is no retroperitoneal adenopathy. Pelvis: Sigmoid colon anastomosis is present. Urinary bladder is unremarkable. There is no free fluid. Uterus is normal in size. Appendix is normal. Skeleton: There are no acute osseous findings. No suspicious bony lesions. IMPRESSION: No acute process.
[2020-05-21 00:10] VITALS: BP 117/70
== END 2020-05-21 00:15 | disposition home or self-care (01) ==
LOC: ER 13:24
DX: R10.13 Epigastric pain (principal); R11.0 Nausea; I10 Essential (primary) hypertension; J45.909 Unspecified asthma, uncomplicated; M06.9 Rheumatoid arthritis, unspecified; Z79.899 Other long term (current) drug therapy; Z90.49 Acquired absence of other specified parts of digestive tract; Z87.891 Personal history of nicotine dependence; Z87.11 Personal history of peptic ulcer disease; Z87.19 Personal history of other diseases of the digestive system; Z88.8 Allergy status to other drugs, medicaments and biological substances; Z88.6 Allergy status to analgesic agent; Z88.5 Allergy status to narcotic agent; Z88.0 Allergy status to penicillin
CPT/HCPCS: 99285; 96361; 96374; 36415; 83690; 85025; 80053; 81001; 74177; S0119; J2405; J7030